=== PATIENT | female | born 1975 | race Caucasian/White ===

== ENCOUNTER 2017-05-05 15:45 | Emergency (ER) | payer OTHER ==
--- NOTE | 2017-05-05 16:22 | ER Document Report ---
ED Medical Screen (RME) - General Chief Complaint: Vag Bleeding, +preg <12wks Stated Complaint: VAGINAL BLEEDING Time Seen by Provider: 05/05/17 16:18 Notes: Patient is believed to be and having some very light vaginal bleeding that began last night. This is the 11th for this patient and she has 8 children.. Her last regular menstrual cycle was March 22 and then she did not have a period in April. She has had home tests positive. Has not seen a physician yet to have official lab work and ultrasound. TRAVEL OUTSIDE OF THE [place] IN LAST 30 DAYS: No - Related Data Allergies/Adverse Reactions: cephalexin monohydrate [From Keflex] Allergy (Severe, Verified 05/05/17 15:49) diphenhydramine HCl [From Benadryl] Allergy (Severe, Verified 05/05/17 15:49) latex [Latex] Adverse Reaction (Severe, Verified 05/05/17 15:49) Past Medical History - Social History Chew tobacco use (# tins/day): No Frequency of alcohol use: Rare Drug Abuse: None Renal/ Medical History: Denies: Hx Peritoneal Dialysis Past Surgical History: Reports: Hx Genitourinary Surgery - gastric bypass - Immunizations Hx Diphtheria, Pertussis, Tetanus Vaccination: Yes History of Influenza Vaccine for 05/2017 - 10/2017 Season: No Physical Exam - Vital signs Vitals: Temp Pulse Resp BP Pulse Ox 97.9 F 77 18 124/73 100 05/05/17 15:51 05/05/17 15:51 05/05/17 15:51 05/05/17 15:51 05/05/17 15:51 Course - Vital Signs Vital signs: Temp Pulse Resp BP Pulse Ox 97.9 F 77 18 124/73 100 05/05/17 15:51 05/05/17 15:51 05/05/17 15:51 05/05/17 15:51 05/05/17 15:51
[2017-05-05 16:45] LABS: ABSOLUTE BASOPHILS # (AUTO) 0.1 10^3/uL (0.0-0.2); ABSOLUTE MONOCYTES (AUTO) 0.4 10^3/uL (0.1-1.4); ABSOLUTE NEUT (AUTO) 4.7 10^3/uL (1.7-8.2); BASOPHILS % (AUTO) 0.8 % (0-2); EOSINOPHILS % (AUTO) 0.6 % (0-6); HEMATOCRIT 39.8 % (36.0-47.0); HEMOGLOBIN 13.9 g/dL (12.0-15.5); HGB HCT DIFFERENCE 1.9; LYMPHOCYTES % (AUTO) 27.7 % (13-45); MEAN CORPUSCULAR HEMOGLOBIN 29.6 pg (27.0-33.4); MEAN CORPUSCULAR HGB CONC 35.1 g/dL (32.0-36.0); MEAN CORPUSCULAR VOLUME 84 fl (80-97); MONOCYTES % (AUTO) 5.5 % (3-13); RED BLOOD COUNT 4.71 10^6/uL (3.72-5.28); RED CELL DISTRIBUTION WIDTH 14.1 % (11.5-14.0); SEGMENTED NEUTROPHILS % (AUTO) 65.4 % (42-78); WHITE BLOOD COUNT 7.2 10^3/uL (4.0-10.5)
--- NOTE | 2017-05-05 16:51 | ER Document Report ---
ED General - General Chief Complaint: Vag Bleeding, +preg <12wks Stated Complaint: VAGINAL BLEEDING Time Seen by Provider: 05/05/17 16:18 Mode of Arrival: Ambulatory Information source: Patient Notes: 41-year-old female 11 para 8 2 miscarriages who is approximately 8 weeks based on last menstrual period presents with complaints of bright red spotting. Patient denies any large clots denies any abdominal pain or cramping Blood type is A+ TRAVEL OUTSIDE OF THE [place] IN LAST 30 DAYS: No - HPI Onset: Just prior to arrival Onset/Duration: Sudden Quality of pain: Cramping Severity: Mild Pain Level: Denies Associated symptoms: Other Exacerbated by: Denies Relieved by: Denies Similar symptoms previously: Yes Recently seen / treated by doctor: No - Related Data Allergies/Adverse Reactions: cephalexin monohydrate [From Keflex] Allergy (Severe, Verified 05/05/17 15:49) diphenhydramine HCl [From Benadryl] Allergy (Severe, Verified 05/05/17 15:49) latex [Latex] Adverse Reaction (Severe, Verified 05/05/17 15:49) Past Medical History - Social History Smoking Status: Never Smoker Cigarette use (# per day): No Chew tobacco use (# tins/day): No Smoking Education Provided: No Frequency of alcohol use: Rare Drug Abuse: None Family History: Reviewed & Not Pertinent Patient has suicidal ideation: No Patient has homicidal ideation: No Renal/ Medical History: Denies: Hx Peritoneal Dialysis Past Surgical History: Reports: Hx Genitourinary Surgery - gastric bypass - Immunizations Hx Diphtheria, Pertussis, Tetanus Vaccination: Yes Review of Systems - Review of Systems Notes: REVIEW OF SYSTEMS: CONSTITUTIONAL : Denies fever, chills, or sweats. Denies recent illness. EENT: Denies eye, ear, throat, or mouth pain or symptoms. Denies nasal or sinus congestion or discharge. Denies throat, tongue, or mouth swelling or difficulty swallowing. CARDIOVASCULAR: Denies chest pain. Denies palpitations or racing or irregular heart beat. Denies ankle edema. RESPIRATORY: Denies cough, cold, or chest congestion. Denies shortness of breath, difficulty breathing, or wheezing. GASTROINTESTINAL: Denies abdominal pain or distention. Denies nausea, vomiting , or diarrhea. Denies blood in vomitus, stools, or per rectum. Denies black, tarry stools. Denies constipation. GENITOURINARY: Denies difficulty urinating, painful urination, burning, frequency, blood in urine, or discharge. FEMALE GENITOURINARY: Admits to vaginal spotting MUSCULOSKELETAL: Denies back or neck pain or stiffness. Denies joint pain or swelling. SKIN: Denies rash, lesions or sores. HEMATOLOGIC : Denies easy bruising or bleeding. LYMPHATIC: Denies swollen, enlarged glands. NEUROLOGICAL: Denies confusion or altered mental status. Denies passing out or loss of consciousness. Denies dizziness or lightheadedness. Denies headache. Denies weakness or paralysis or loss of use of either side. Denies problems with gait or speech. Denies sensory loss, numbness, or tingling. Denies seizures. PSYCHIATRIC: Denies anxiety or stress. Denies depression, suicidal ideation, or homicidal ideation. ALL OTHER SYSTEMS REVIEWED AND NEGATIVE. PHYSICAL EXAMINATION: GENERAL: Well-appearing, well-nourished and in no acute distress. HEAD: Atraumatic, normocephalic. EYES: Pupils equal round and reactive to light, extraocular movements intact, conjunctiva are normal. ENT: Nares patent, oropharynx clear without exudates. Moist mucous membranes. NECK: Normal range of motion, supple without lymphadenopathy LUNGS: Breath sounds clear to auscultation bilaterally and equal. No wheezes rales or rhonchi. HEART: Regular rate and rhythm without murmurs ABDOMEN: Soft, nontender, nondistended abdomen. No guarding, no rebound. No masses appreciated. Female : deferred Musculoskeletal: Normal range of motion, no pitting or edema. No cyanosis. NEUROLOGICAL: Cranial nerves grossly intact. Normal speech, normal gait. Normal sensory, motor exams PSYCH: Normal mood, normal affect. SKIN: Warm, Dry, normal turgor, no rashes or lesions noted. Dictation was performed using m[employer] voice recognition software Physical Exam - Vital signs Vitals: Temp Pulse Resp BP Pulse Ox 97.9 F 77 18 124/73 100 05/05/17 15:51 05/05/17 15:51 05/05/17 15:51 05/05/17 15:51 05/05/17 15:51 Course - Re-evaluation Re-evalutation: 05/05/17 17:28 Patient overall looks well, lab work ultrasound pending 05/05/17 18:23 HCG level is noted to be quite low, repeat 48 hours given to her Otherwise a low suspicion for ectopic at this time After performing a Medical Screening Examination, I estimate there is LOW risk for ACUTE APPENDICITIS, BOWEL OBSTRUCTION, ACUTE CHOLECYSTITIS, PERFORATED DIVERTICULITIS, INCARCERATED HERNIA, PANCREATITIS, PELVIC INFLAMMATORY DISEASE, PERFORATED ULCER, ECTOPIC , or TUBO-OVARIAN ABSCESS, thus I consider the discharge disposition reasonable. Also, there is no evidence or peritonitis , sepsis, or toxicity. I have reevaluated this patient multiple times and no significant life threatening changes are noted. The patient and I have discussed the diagnosis and risks, and we agree with discharging home with close follow-up with the understanding that symptoms and presentations can change. We also discussed returning to the Emergency Department immediately if new or worsening symptoms occur. We have discussed the symptoms which are most concerning (e.g., bloody stool, fever, changing or worsening pain, vomiting) that necessitate immediate return. - Vital Signs Vital signs: Temp Pulse Resp BP Pulse Ox 97.9 F 77 18 124/73 100 05/05/17 15:51 05/05/17 15:51 05/05/17 15:51 05/05/17 15:51 05/05/17 15:51 - Laboratory Result Diagrams: 05/05/17 16:27 Laboratory results interpreted by me: 05/05/17 05/05/17 16:27 16:27 RDW 14.1 H Beta HCG, Quant 71.27 H - Diagnostic Test Radiology reviewed: Image reviewed, Reports reviewed - Ultrasound report given to patient Discharge - Discharge Clinical Impression: Threatened miscarriage in early Condition: Stable Disposition: HOME, SELF-CARE Instructions: Repeat Blood Test ([facility]), Threatened Miscarriage ([facility]) Additional Instructions: Follow-up in 48 hours for recheck of your hCG level return immediately if there are any other concerns Forms: Follow-Up Laboratory Testing Referrals: [facility] [Provider Group] - Follow up tomorrow
--- NOTE | 2017-05-05 18:19 | RADIOLOGY REPORT (SQ) ---
EXAM DESCRIPTION: U/S OB TRANSVAG W/DOPPLER COMPLETED DATE/TIME: 05/05/2017 5:52 pm REASON FOR STUDY: ?6 weeks with vaginal bleeding COMPARISON: None. TECHNIQUE: Dynamic and static grayscale images acquired of the pelvis via transvaginal approach and recorded on PACS. Additional selected color Doppler and spectral images recorded. LIMITATIONS: None. FINDINGS: UTERUS: Contour normal. No mass. ENDOMETRIAL STRIPE: No focal or generalized thickening. No masses. CERVIX: No nabothian cysts. RIGHT OVARY: No abnormal masses. RIGHT OVARY DOPPLER: Normal arterial vascular flow without evidence for torsion. LEFT OVARY: No abnormal masses. LEFT OVARY DOPPLER: Normal arterial vascular flow without evidence for torsion. FREE FLUID: None noted. OTHER: No other significant finding. MEASUREMENTS: UTERUS: 8.4 x 6.1 x 5.6 cm ENDOMETRIAL STRIPE: 7 mm RIGHT OVARY: 2 x 3 x 3 cm LEFT OVARY: 2 x 2 x 3 cm. IMPRESSION: Age-appropriate exam. No IUP identified. TECHNICAL DOCUMENTATION: JOB ID: [id number] [facility]- All Rights Reserved
[2017-05-05 18:40] VITALS: BP 112/70
== END 2017-05-05 18:40 | disposition home or self-care (01) ==
LOC: ER 15:45
DX: O20.0 Threatened abortion (principal); O99.840 Bariatric surgery status complicating pregnancy, unspecified trimester; Z3A.00 Weeks of gestation of pregnancy not specified; Z88.1 Allergy status to other antibiotic agents; Z88.8 Allergy status to other drugs, medicaments and biological substances
CPT/HCPCS: 36415; 76817; 84702; 85025; 86900; 86901; 93976; 99284

== ENCOUNTER → 2017-05-07 | Outpatient (CLI) | payer OTHER | LOC: LAB 16:30 | PROVIDERS: ATTEND Emergency Medicine | DX: O20.0 Threatened abortion (principal); N93.9 Abnormal uterine and vaginal bleeding, unspecified | CPT/HCPCS: 36415; 84702 ==

== ENCOUNTER → 2018-06-28 | Outpatient (CLI) | payer OTHER | LOC: OD 13:19 | PROVIDERS: ATTEND Physician Assistant Medical | DX: Z32.01 Encounter for pregnancy test, result positive (principal) | CPT/HCPCS: 36415; 84702 ==